=== PATIENT | female | born 1955 | race Caucasian/White ===

== ENCOUNTER 2016-02-27 09:17 | Day surgery (SDC) | payer OTHER ==
[~2016-02-27 09:17] MED LIST: LACTATED RINGERS 1,000 ML IV.SOLN IV ONE; LIDOCAINE HCL/PF 2% 100 MG/5 ML VIAL IJ ONE; PROPOFOL 200 MG/20 ML VIAL IV ONE; SALINE FLUSH 10 ML DISP.SYRIN IVF ONE
[2016-02-27 12:05] VITALS: BP 112/77
--- NOTE | 2016-02-27 18:37 | Operative Note ---
SURGEON: Martinez Tellez MD ANESTHESIA: MAC anesthesia. ESTIMATED BLOOD LOSS: None. COMPLICATIONS: None. FINDINGS: Normal Exam. PREOPERATIVE DIAGNOSIS: Abdominal pain. POSTOPERATIVE DIAGNOSIS: Abdominal pain. PROCEDURE PERFORMED: Esophagogastroduodenoscopy (EGD). DESCRIPTION OF PROCEDURE: Patient was brought to the endoscopy suite and placed in the left lateral decubitus position. MAC anesthesia was administered by flame hardening machine setter. The endoscope was inserted and passed easily into the stomach and into the second portion of the duodenum. All of the mucosal was normal. There was no gastritis or ulcer. The esophagus was normal as well. There were no abnormal findings of esophagitis. The endoscope was removed. The patient tolerated the procedure well. RECOMMENDATIONS: I recommend she follow up with her primary care doctor. NORM
== END 2016-02-27 12:25 | disposition home or self-care (01) ==
LOC: OPSURG 09:17
PROVIDERS: ATTEND Colon & Rectal Surgery
DX: R10.9 Unspecified abdominal pain (principal)
CPT/HCPCS: 43235; J2001; J2704; J7120; S1016

== ENCOUNTER 2016-03-05 08:42 | Outpatient (CLI) | payer OTHER ==
[2016-03-05 09:41] LABS: eGFR (African) > 60; eGFR (Non-African) > 60
== END 2016-03-05 08:44 ==
LOC: LAB 08:42
PROVIDERS: ATTEND Family Medicine
DX: R10.84 Generalized abdominal pain (principal); Z11.59 Encounter for screening for other viral diseases
CPT/HCPCS: 36415; 80053; 82150; 86803

== ENCOUNTER 2016-03-12 08:09 | Day surgery (SDC) | payer OTHER ==
[~2016-03-12 08:09] MED LIST changes: -LACTATED RINGERS 1,000 ML IV.SOLN IV ONE; -LIDOCAINE HCL/PF 2% 100 MG/5 ML VIAL IJ ONE; -PROPOFOL 200 MG/20 ML VIAL IV ONE; +PROPOFOL 500 MG/50 ML VIAL IV ONE; -SALINE FLUSH 10 ML DISP.SYRIN IVF ONE
--- NOTE | 2016-03-13 09:51 | Operative Note ---
SURGEON: Martinez Tellez MD ANESTHESIA: MAC anesthesia. ESTIMATED BLOOD LOSS: None. COMPLICATIONS: None. PREOPERATIVE DIAGNOSES: 1. Screening colonoscopy. 2. Abdominal pain. POSTOPERATIVE DIAGNOSIS: Minimal diverticular disease, otherwise, normal colonoscopy. PROCEDURE PERFORMED: Colonoscopy to the cecum. DESCRIPTION OF PROCEDURE: Patient was brought to the endoscopy suite and placed in the left lateral decubitus position. A rectal exam was performed which was normal. The colonoscope was inserted and passed without difficulty to the cecum. The prep was very good. The ileocecal valve and appendiceal orifice were identified. The colonoscope was slowly retracted being careful to inspect all pickard. No polyps or other lesions were seen. There was minimal diverticular disease in the sigmoid colon. The scope was removed. The patient tolerated the procedure well. FINDINGS: Minimal diverticular disease, otherwise, normal colonoscopy. RECOMMENDATIONS: I recommended a repeat colonoscopy in 10 years. NORM
== END 2016-03-12 08:10 ==
LOC: OPSURG 08:09
PROVIDERS: ATTEND Colon & Rectal Surgery
DX: Z12.11 Encounter for screening for malignant neoplasm of colon (principal); R10.9 Unspecified abdominal pain; K57.30 Diverticulosis of large intestine without perforation or abscess without bleeding
CPT/HCPCS: 45378; J2704; S1016

== ENCOUNTER 2016-03-16 08:09 | Outpatient (CLI) | payer OTHER ==
--- NOTE | 2016-03-16 10:54 | Diagnostic Imaging Report ---
[facility] [address] [facility].[address] [address] Report Submission Date: Mar 16, 2016 9:27:22 AM NEEDLE LOOM SETTER Patient Study Name: MARK SOTO Date: Mar 16, 2016 8:22:23 AM NEEDLE LOOM SETTER Modality Type: US Gender: F Description: US ABD LIMITED : 55 Institution: [facility] Physician SATISH GUILLEN - MALINDA Ultrasound of the upper abdomen CLINICAL HISTORY: Pain. TECHNIQUE: Real-time sonography of the upper abdomen is performed in transverse and longitudinal views. FINDINGS: The gallbladder is normally distended. There is no evident gallstone or gallbladder wall thickening and no pericholecystic fluid. The common bile duct measures 5 mm in diameter. There is no intrahepatic ductal dilatation. Renal cortical echogenicity appears increased relative to the adjacent liver consistent with medical renal disease. There is no hydronephrosis. Limited images of the pancreas are unremarkable. IMPRESSION: Increased renal cortical echogenicity consistent with medical renal disease. Otherwise negative study. Electronically signed on Mar 16, 2016 9:27:22 AM NEEDLE LOOM SETTER by: Tai ZHENG
== END 2016-03-16 08:10 ==
LOC: RAD 08:09
PROVIDERS: ATTEND Family Medicine
DX: R10.9 Unspecified abdominal pain (principal)
CPT/HCPCS: 76705

== ENCOUNTER 2016-09-28 15:03 | Outpatient (CLI) | payer OTHER | END 2016-09-28 15:30 | LOC: LABRHC 15:03 | PROVIDERS: ATTEND Family Medicine | DX: R30.0 Dysuria (principal) | CPT/HCPCS: 87086; 87186 ==

== ENCOUNTER 2017-04-22 11:56 | Outpatient (CLI) | payer OTHER ==
--- NOTE | 2017-04-22 19:17 | Diagnostic Imaging Report ---
AGUSTIN DOMINIQUE [facility] [address] [facility] [address] [place], [place]. [address] Report Submission Date: Apr 22, 2017 1:24:03 PM ASSURANCE ASSISTANT Patient Study Name: MARK SOTO Date: Apr 22, 2017 12:21:48 PM ASSURANCE ASSISTANT Modality Type: CT\SR Gender: F Description: CT A/P W/O CONTRAST : 55 Institution: [facility] Physician: AGUSTIN DOMINIQUE Examination: CT Abdomen/pelvis History: CT A/P W/O, RENAL STONE STUDY, RT FLANK PAIN AND HEMATURIA WITH GROIN PAIN, X1 MONTH, WORSENING (Hx) / RT FLANK PAIN AND HEMATURIA (DICOM Hx) Comparison exams: None available Technique: CT Abdomen/pelvis without contrast protocol. Findings: Mid left renal scarring with calcification. Likely cyst within the mid anterior aspect of the right kidney. No other suspicious cortical irregularities or calcifications. Ureters described a normal course through the abdomen and pelvis. No abnormal dilation. No central calcifications. Ureterovesicular junctions are within normal limits. Pelvic phleboliths. Liver, spleen, adrenals, gallbladder and pancreas are without gross irregularity given exam technique. No gallstone. Abdominal aorta demonstrates mild peripheral atherosclerotic disease. No aneurysm. Cardiac silhouette not enlarged. No pericardial effusion. Bowel unopacified limiting evaluation. No mesenteric inflammatory changes or free fluid. No abnormal small bowel dilation. Stool throughout the large bowel. Appendix visualized and is without inflammatory changes. Few scattered sigmoid diverticula. Large cyst within the region of the right adnexa measuring 4 cm. Osseous structures demonstrate degenerative changes an curvature to the left. Superior acetabular cystic formation. Lung bases demonstrates posterior atelectasis and scarring. No effusion. Impression: Left renal scarring and calcification. Right renal presumed cyst. No evidence for ureteral dilation or calcification. No acute upper abdominal organ inflammatory process. No abnormal bowel dilation or inflammation. Sigmoid diverticulosis. No evidence for acute diverticulitis. 4 cm right adnexal cyst. Recommend pelvic ultrasound to further evaluate. Lung base parenchymal scarring without effusion. Electronically signed on Apr 22, 2017 1:24:03 PM ASSURANCE ASSISTANT by: Stephon ZHENG
== END 2017-04-22 11:59 ==
LOC: RAD 11:56
PROVIDERS: ATTEND Physician Assistant
DX: R10.9 Unspecified abdominal pain (principal); R31.9 Hematuria, unspecified; R30.0 Dysuria
CPT/HCPCS: 74176; 87086

== ENCOUNTER 2018-06-30 09:28 | Outpatient (CLI) | payer OTHER ==
--- NOTE | 2018-06-30 10:47 | Diagnostic Imaging Report ---
SATISH GUILELN [facility] [address] [address] Report Submission Date: June 30, 2018 10:14:22 AM CDT Patient Study Name: MARK SOTO Date: June 30, 2018 12:00:00 AM CDT Modality Type: DEXA\OT Gender: F Description: : 55 Institution: [facility] Physician: SATISH GUILLEN Examination: Bone density History: Assess bone mineralization Comparison exams: None available Technique: DEXA protocol Findings: Average bone mineral density from L1 through L4: 1.273 grams cm2. T score: 0.8 Average bone mineral density of the left femoral neck: 0.821 grams cm2. T score: -1.5 Average bone mineral density of the right radius: 0.764 grams cm2. T score: -1.4 Impression: Normal lumbar spine mineralization for age Radius and hip osteopenia. Electronically signed on June 30, 2018 10:14:22 AM CDT by: Stephon ZHENG
== END 2018-06-30 09:30 ==
LOC: RAD 09:28
PROVIDERS: ATTEND Family Medicine
DX: M81.0 Age-related osteoporosis without current pathological fracture (principal); M85.89 Other specified disorders of bone density and structure, multiple sites
CPT/HCPCS: 77080